=== PATIENT | female | born 2000 | race Caucasian/White ===

== ENCOUNTER 2025-03-30 17:47 | Emergency (ER) | payer OTHER ==
[~2025-03-30] VITALS: Ht 160 cm; Wt 107.5 kg
[2025-03-30 17:54] VITALS: BP 117/78
[2025-03-30] MEDS ORDERED: LIDOCAINE 2%-EPI 1:100,000 20 ML VIAL ONE (18:14)
[2025-03-30] MEDS: LIDOCAINE 2%-EPI 1:100,000 20 ML VIAL IJ ONE (18:15)
[2025-03-30] MEDS ORDERED: NEOMY/BACITRA/POLYMYXIN B OINT UD PACKET TP ONE (19:17)
[2025-03-30] MEDS: NEOMY/BACITRA/POLYMYXIN B OINT UD PACKET TP ONE (19:17)
[2025-03-30 19:44] VITALS: BP 115/74; O2SAT 98
== END 2025-03-30 19:45 | disposition home or self-care (01) ==
LOC: ER 17:47
DX: S01.81XA Laceration without foreign body of other part of head, initial encounter (principal); W18.39XA Other fall on same level, initial encounter; Y93.89 Activity, other specified; Y92.89 Other specified places as the place of occurrence of the external cause; Y99.8 Other external cause status
CPT/HCPCS: A4606; A4663

== ENCOUNTER 2025-04-03 12:06 | Emergency (ER) | payer OTHER ==
[~2025-04-03] VITALS: Ht 162.6 cm; Wt 108.0 kg
[2025-04-03 12:07] VITALS: BP 133/83; O2SAT 96
== END 2025-04-03 12:33 | disposition home or self-care (01) ==
LOC: ER 12:06
DX: S01.81XD Laceration without foreign body of other part of head, subsequent encounter (principal); Z48.02 Encounter for removal of sutures; Z86.69 Personal history of other diseases of the nervous system and sense organs; Z86.59 Personal history of other mental and behavioral disorders; X58.XXXD Exposure to other specified factors, subsequent encounter
CPT/HCPCS: A4606; A4663

== ENCOUNTER 2025-05-16 15:36 | Emergency (ER) | payer OTHER ==
[~2025-05-16] VITALS: Ht 162.6 cm; Wt 108.9 kg
[2025-05-16 15:43] VITALS: BP 116/71; O2SAT 98
== END 2025-05-16 17:45 | disposition left against medical advice (07) ==
LOC: ER 15:38
DX: R21 Rash and other nonspecific skin eruption (principal); R56.9 Unspecified convulsions; F32.A Depression, unspecified; Z53.21 Procedure and treatment not carried out due to patient leaving prior to being seen by health care provider
CPT/HCPCS: A4606; A4663

== ENCOUNTER 2025-06-29 04:30 | Emergency (ER) | payer OTHER ==
[~2025-06-29] VITALS: Ht 162.6 cm; Wt 108.9 kg
[2025-06-29 04:32] VITALS: BP 104/55
[2025-06-29 05:36] LABS: *URINE HCG, QUAL NEGATIVE (NEGATIVE); PLATELET COUNT (AUTO) 441 K/uL (179-408); RED BLOOD CELL COUNT(AUTO) 4.22 MIL/uL (3.63-4.92); RED CELL DISTRIBUTION WIDTH 13.1 % (12.3-17.7); WHITE BLOOD COUNT (AUTO) 7.5 K/uL (3.8-11.8)
[2025-06-29 05:44] LABS: CREATININE 0.7 mg/dL (0.6-1.3); SODIUM SERUM 140.0 mmol/L (136-145); UREA NITROGEN, BLOOD 14.0 mg/dL (7-18)
[2025-06-29 05:50] LABS: ASPARTATE AMINOTRANSFERASE 12.0 U/L (15-37); TOTAL PROTEIN, SERUM 7.6 g/dL (6.4-8.2)
[2025-06-29] MEDS ORDERED: LEVE500T9 PO (06:07)
[2025-06-29 06:14] VITALS: BP 101/62; O2SAT 98
== END 2025-06-29 06:14 | disposition home or self-care (01) ==
LOC: ER 04:39
DX: R56.9 Unspecified convulsions (principal); S30.0XXA Contusion of lower back and pelvis, initial encounter; Z79.899 Other long term (current) drug therapy; Z88.7 Allergy status to serum and vaccine; W19.XXXA Unspecified fall, initial encounter; Y93.89 Activity, other specified; Y92.89 Other specified places as the place of occurrence of the external cause; Y99.9 Unspecified external cause status
CPT/HCPCS: 36415; 84443; 84703; 85025; A4606; A4663